=== PATIENT | female | born 1995 | race Caucasian/White ===

== ENCOUNTER → 2017-02-15 | Outpatient (CLI) | payer OTHER ==
[2017-02-15 17:09] LABS: BASO % 0.4 % (0.0-1.0); EOS # 0.2 10^3/uL (0.0-0.50); EOS % 1.8 % (0.0-3.0); IMMATURE GRANULOCYTE % 0.4 % (0-0); LYMPH # 1.9 10^3/uL (1.5-6.5); LYMPH % 18.8 % (24.0-44.0); MEAN CORPUSCULAR HEMOGLOBIN 30.4 pg (27.0-33.0); MEAN CORPUSCULAR HGB CONC 34.7 g/dl (32.0-36.5); MEAN CORPUSCULAR VOLUME 87.6 fl (80.0-96.0); MONO # 0.6 10^3/uL (0.0-0.8); MONO % 6.2 % (0.0-5.0); NEUTROPHILS # 7.3 10^3/uL (1.8-7.7); NEUTROPHILS % 72.4 % (36.0-66.0); PLATELET COUNT, AUTOMATED 214 10^3/uL (150-450); RED CELL DISTRIBUTION WIDTH 12.9 % (11.5-14.5); WHITE BLOOD COUNT 10.1 10^3/uL (4.0-10.0)
[2017-02-16 10:19] LABS: HBsAg Prenatal NEGATIVE (NEGATIVE)
== END ==
LOC: M SMT 14:37
PROVIDERS: ATTEND Specialist
DX: Z36.89 Encounter for other specified antenatal screening (principal); Z3A.08 8 weeks gestation of pregnancy

== ENCOUNTER → 2017-05-06 | Outpatient (CLI) | payer OTHER | LOC: M RAD 09:36 | DX: Z36.9 Encounter for antenatal screening, unspecified (principal); Z3A.19 19 weeks gestation of pregnancy | CPT/HCPCS: 76811 ==

== ENCOUNTER → 2017-06-03 | Outpatient (CLI) | payer OTHER | LOC: M RAD 10:42 | DX: Z34.82 Encounter for supervision of other normal pregnancy, second trimester (principal); Z36.89 Encounter for other specified antenatal screening; Z3A.23 23 weeks gestation of pregnancy | CPT/HCPCS: 76817 ==

== ENCOUNTER → 2017-07-01 | Outpatient (CLI) | payer OTHER ==
[2017-07-01 17:19] LABS: GLUCOSE CHALLENGE TEST 1 HOUR 108 MG/DL (LESS THAN 140)
[2017-07-01 17:35] LABS: HEMATOCRIT 33.4 % (36.0-47.0); HEMOGLOBIN 11.2 g/dl (12.0-15.5); MEAN CORPUSCULAR HEMOGLOBIN 30.5 pg (27.0-33.0); MEAN CORPUSCULAR HGB CONC 33.5 g/dl (32.0-36.5); PLATELET COUNT, AUTOMATED 198 10^3/uL (150-450); RED BLOOD COUNT 3.67 10^6/uL (4.00-5.40); WHITE BLOOD COUNT 11.2 10^3/uL (4.0-10.0)
== END ==
LOC: M WUC 12:46
DX: Z34.83 Encounter for supervision of other normal pregnancy, third trimester (principal); Z3A.00 Weeks of gestation of pregnancy not specified
CPT/HCPCS: 82950

== ENCOUNTER → 2017-09-08 | Outpatient (REF) | payer OTHER | LOC: M LAB REF 16:57 | DX: Z34.83 Encounter for supervision of other normal pregnancy, third trimester (principal); Z3A.00 Weeks of gestation of pregnancy not specified | CPT/HCPCS: 87081 ==

== ENCOUNTER 2017-10-16 13:23 | Emergency (ER) | payer OTHER | END 2017-10-16 15:09 | disposition home or self-care (01) | LOC: M ED 13:23 | DX: O90.0 Disruption of cesarean delivery wound (principal); Z87.891 Personal history of nicotine dependence | CPT/HCPCS: 99283 ==

== ENCOUNTER → 2018-04-04 | Outpatient (REF) | payer OTHER ==
[~2018-04-04] MED LIST: IBUP-1114 PO; PERCOCET PO
[2018-04-04 16:42] LABS: INFLUENZA A AMPLIFICATION POSITIVE (NEGATIVE); INFLUENZA B AMPLIFICATION NEGATIVE (NEGATIVE)
== END ==
LOC: M LAB REF 16:07
PROVIDERS: ATTEND Physician Assistant Medical
DX: J11.1 Influenza due to unidentified influenza virus with other respiratory manifestations (principal)

== ENCOUNTER → 2019-11-21 | Outpatient (CLI) | payer OTHER ==
[2019-11-21 16:35] LABS: HEMATOCRIT 40.2 % (36.0-47.0); HEMOGLOBIN 13.7 g/dl (12.0-15.5); MEAN CORPUSCULAR HEMOGLOBIN 30.5 pg (27.0-33.0); MEAN CORPUSCULAR HGB CONC 34.1 g/dl (32.0-36.5); MEAN CORPUSCULAR VOLUME 89.5 fl (80.0-96.0); PLATELET COUNT, AUTOMATED 197 10^3/uL (150-450); RED BLOOD COUNT 4.49 10^6/uL (4.00-5.40); WHITE BLOOD COUNT 8.4 10^3/uL (4.0-10.0)
[2019-11-21 17:11] LABS: FREE T4 1.07 NG/DL (0.76-1.46); THYROID STIMULATING HORMONE 1.62 uIU/ML (0.358-3.740)
== END ==
LOC: M WUC 14:44
PROVIDERS: ATTEND Student in an Organized Health Care Education/Training Program
DX: F33.1 Major depressive disorder, recurrent, moderate (principal); L64.9 Androgenic alopecia, unspecified; R63.4 Abnormal weight loss

== ENCOUNTER 2020-03-17 11:57 | Emergency (ER) | payer BC, OTHER ==
[~2020-03-17] VITALS: Ht 162.6 cm; Wt 77.2 kg
[2020-03-17] MEDS ORDERED: SERT-138 (12:09)
[2020-03-17] MEDS ORDERED: ACETAMINOPHEN 500 MG TAB PO ONE (14:00)
[2020-03-17 15:05] LABS: BASO % 0.2 % (0.0-1.0); EOS # 0.3 10^3/uL (0.0-0.5); HEMATOCRIT 45.3 % (36.0-47.0); HEMOGLOBIN 15.3 g/dl (12.0-15.5); LYMPH % 23.7 % (24.0-44.0); MEAN CORPUSCULAR HEMOGLOBIN 29.9 pg (27.0-33.0); MEAN CORPUSCULAR HGB CONC 33.8 g/dl (32.0-36.5); MEAN CORPUSCULAR VOLUME 88.6 fl (80.0-96.0); MONO # 0.4 10^3/uL (0.0-0.8); MONO % 4.4 % (0.0-5.0); NEUTROPHILS # 5.8 10^3/uL (1.5-8.5); NEUTROPHILS % 68.5 % (36.0-66.0); PLATELET COUNT, AUTOMATED 216 10^3/uL (150-450); RED BLOOD COUNT 5.11 10^6/uL (4.00-5.40); WHITE BLOOD COUNT 8.5 10^3/uL (4.0-10.0)
[2020-03-17 15:23] LABS: D-DIMER QUANT < 270.0 ng/ml (<500)
[2020-03-17] MEDS ORDERED: NS 1,000 ML IV ONE (15:30)
[2020-03-17 15:42] LABS: ALBUMIN 4.1 GM/DL (3.2-5.2); ALT/SGPT 16 U/L (12-78); BILIRUBIN,DIRECT 0.1 MG/DL (0.0-0.2); BILIRUBIN,TOTAL 0.3 MG/DL (0.2-1.0); BLOOD UREA NITROGEN 12 MG/DL (7-18); CALCIUM LEVEL 9.4 MG/DL (8.5-10.1); CARBON DIOXIDE LEVEL 29 MEQ/L (21-32); CHLORIDE LEVEL 106 MEQ/L (98-107); CK-MB VALUE MASS < 1.0 NG/ML (<3.6); CPK CREATINE PHOSPHOKINASE 85 U/L (26-192); CREATININE FOR GFR 0.81 MG/DL (0.55-1.30); FREE T4 1.06 NG/DL (0.76-1.46); GLOMERULAR FILTRATION RATE > 60.0 (>60); GLUCOSE, FASTING 83 MG/DL (70-100); LIPASE 89 U/L (73-393); MB/CK RELATIVE INDEX 1.18 (< OR =4); POTASSIUM SERUM 3.8 MEQ/L (3.5-5.1); SODIUM LEVEL 139 MEQ/L (136-145); TOTAL PROTEIN 7.3 GM/DL (6.4-8.2); TROPONIN I < 0.02 NG/ML (< 0.10)
[2020-03-17 15:58] LABS: FIBRINOGEN 331 MG/DL (221-452)
--- NOTE | 2020-03-17 16:07 | REP ---
INDICATION: sob. COMPARISON: No comparison study. TECHNIQUE: Portable upright AP chest radiograph. FINDINGS: The lungs are well inflated and free of infiltrate. Pleural angles are sharp. Heart size is normal. Pulmonary vasculature is not increased. EKG monitoring electrodes overlie the chest. IMPRESSION: No active disease. <Electronically signed by Magno Johnston > 03/17/20 0011
[2020-03-17 16:12] LABS: FERRITIN 58 NG/ML (8-252); LDH LACTATE DEHYDROGENASE 177 U/L (84-246)
[2020-03-17 16:41] VITALS: O2SAT 98
[2020-03-17 17:56] VITALS: BP 125/70
--- NOTE | 2020-03-19 14:24 | ECGEPIP ---
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
== END 2020-03-17 18:00 | disposition home or self-care (01) ==
LOC: M ED 11:57
DX: Z11.52 Encounter for screening for COVID-19 (principal); B34.9 Viral infection, unspecified; R09.02 Hypoxemia; R51.9 Headache, unspecified; M79.10 Myalgia, unspecified site; R06.00 Dyspnea, unspecified; R68.83 Chills (without fever); R53.83 Other fatigue; R11.2 Nausea with vomiting, unspecified; R19.7 Diarrhea, unspecified; R00.0 Tachycardia, unspecified; F41.9 Anxiety disorder, unspecified; F32.9 Major depressive disorder, single episode, unspecified; F43.10 Post-traumatic stress disorder, unspecified; F17.200 Nicotine dependence, unspecified, uncomplicated

== ENCOUNTER → 2020-04-15 | Outpatient (CLI) | payer BC ==
[~2020-04-15] MED LIST changes: +SERT-138
--- NOTE | 2020-04-15 17:11 | REP ---
INDICATION: UPPER BACK PAIN. COMPARISON: 03/25/2003. TECHNIQUE: AP and lateral. FINDINGS: There is no fracture or dislocation. Vertebral bodies normal in height and well aligned with normal cervical lordosis. There is no prevertebral soft tissue swelling. Disc spaces are well preserved. IMPRESSION: No abnormalities detected. <Electronically signed by Noel Solares > 04/15/20 [id number]
--- NOTE | 2020-04-15 17:12 | REP ---
INDICATION: UPPER BACK PAIN. COMPARISON: 09/27/2013. TECHNIQUE: Three AP and lateral views obtained. FINDINGS: There is no compression fracture or malalignment. There is normal thoracic kyphosis. Disc spaces are well preserved. The posterior elements are intact. IMPRESSION: Negative thoracic spine series. <Electronically signed by Noel Solares > 04/15/20 [id number]
== END ==
LOC: M WUC 14:07
PROVIDERS: ATTEND Student in an Organized Health Care Education/Training Program
DX: M54.9 Dorsalgia, unspecified (principal)

== ENCOUNTER → 2021-04-07 | Outpatient (CLI) | payer BC | LOC: M WUC 15:32 | PROVIDERS: ATTEND Physician Assistant | DX: S93.411A Sprain of calcaneofibular ligament of right ankle, initial encounter (principal); S93.691A Other sprain of right foot, initial encounter; X58.XXXA Exposure to other specified factors, initial encounter; Y92.9 Unspecified place or not applicable; Y93.9 Activity, unspecified; Y99.9 Unspecified external cause status ==

== ENCOUNTER → 2022-01-20 | Outpatient (CLI) | payer BC ==
[2022-01-20 12:44] LABS: BASO % 0.1 % (0.0-1.0); EOS # 0.5 10^3/uL (0.0-0.5); EOS % 6.1 % (0.0-3.0); HEMATOCRIT 42.3 % (36.0-47.0); HEMOGLOBIN 14.2 g/dl (12.0-15.5); LYMPH # 1.8 10^3/uL (1.5-5.0); LYMPH % 24.5 % (24.0-44.0); MEAN CORPUSCULAR HEMOGLOBIN 30.8 pg (27.0-33.0); MEAN CORPUSCULAR HGB CONC 33.6 g/dl (32.0-36.5); MEAN CORPUSCULAR VOLUME 91.8 fl (80.0-96.0); MONO # 0.5 10^3/uL (0.0-0.8); MONO % 6.1 % (2.0-8.0); NEUTROPHILS # 4.7 10^3/uL (1.5-8.5); NEUTROPHILS % 62.8 % (36.0-66.0); PLATELET COUNT, AUTOMATED 228 10^3/uL (150-450); RED BLOOD COUNT 4.61 10^6/uL (4.00-5.40); WHITE BLOOD COUNT 7.5 10^3/uL (4.0-10.0)
[2022-01-20 13:51] LABS: ALBUMIN 3.8 G/DL (3.2-5.2); ALKALINE PHOSPHATASE 79 U/L (46-116); ALT/SGPT 18 U/L (7.0-40); AST/SGOT 23 U/L (<34); BILIRUBIN,TOTAL 0.3 MG/DL (0.3-1.2); BLOOD UREA NITROGEN 9 MG/DL (9-23); CALCIUM LEVEL 8.7 MG/DL (8.5-10.1); CARBON DIOXIDE LEVEL 30 MMOL/L (20-31); CHLORIDE LEVEL 104 MMOL/L (98-107); CREATININE FOR GFR 0.83 MG/DL (0.55-1.30); FREE T4 0.95 NG/DL (0.89-1.76); GLOMERULAR FILTRATION RATE > 60.0 (>60); GLUCOSE, FASTING 100 MG/DL (60-100); POTASSIUM SERUM 3.7 MMOL/L (3.5-5.1); SODIUM LEVEL 142 MMOL/L (136-145); THYROID STIMULATING HORMONE 2.186 uIU/ML (0.55-4.78); TOTAL PROTEIN 6.9 G/DL (5.7-8.2)
== END ==
LOC: M WUC 09:27
PROVIDERS: ATTEND Student in an Organized Health Care Education/Training Program
DX: R53.83 Other fatigue (principal); M79.671 Pain in right foot; M79.89 Other specified soft tissue disorders; S92.531A Displaced fracture of distal phalanx of right lesser toe(s), initial encounter for closed fracture; X58.XXXA Exposure to other specified factors, initial encounter; Y92.9 Unspecified place or not applicable; Y99.9 Unspecified external cause status; Y93.9 Activity, unspecified

== ENCOUNTER → 2022-05-05 | Outpatient (REF) | payer BC | LOC: M SFHCWAGY 17:55 | PROVIDERS: ATTEND Nurse Practitioner Family | DX: Z12.4 Encounter for screening for malignant neoplasm of cervix (principal); R87.615 Unsatisfactory cytologic smear of cervix ==

== ENCOUNTER 2022-05-17 15:31 | Emergency (ER) | payer BC ==
[~2022-05-17] VITALS: Ht 162.6 cm; Wt 88.6 kg
[2022-05-17] MEDS ORDERED: MIRT-62 PO (15:51)
[2022-05-17] MEDS ORDERED: KLON0.5T PO (15:51)
[2022-05-17] MEDS ORDERED: WELLTAB40 PO (15:51)
[2022-05-17] MEDS ORDERED: PAXI20TA30 PO (15:51)
[2022-05-17] MEDS ORDERED: WELLTAB38 PO (15:51)
[2022-05-17 16:50] LABS: HEMATOCRIT 42.7 % (36.0-47.0); HEMOGLOBIN 14.2 g/dl (12.0-15.5); MEAN CORPUSCULAR HEMOGLOBIN 30.3 pg (27.0-33.0); MEAN CORPUSCULAR HGB CONC 33.3 g/dl (32.0-36.5); MEAN CORPUSCULAR VOLUME 91.2 fl (80.0-96.0); PLATELET COUNT, AUTOMATED 230 10^3/uL (150-450); RED BLOOD COUNT 4.68 10^6/uL (4.00-5.40); WHITE BLOOD COUNT 9.4 10^3/uL (4.0-10.0)
[2022-05-17 16:57] LABS: BARBITURATES URINE NEGATIVE (NEGATIVE); BENZODIAZEPINES URINE NEGATIVE (NEGATIVE); COCAINE METABOLITE URINE NEGATIVE (NEGATIVE); METHADONE URINE NEGATIVE (NEGATIVE); OPIATES URINE NEGATIVE (NEGATIVE); PHENCYCLIDINE URINE NEGATIVE (NEGATIVE)
[2022-05-17 16:59] LABS: AMPHETAMINES LEVEL URINE POSITIVE (NEGATIVE); CANNABINOIDS URINE POSITIVE (NEGATIVE)
[2022-05-17 17:04] LABS: ETHYL ALCOHOL (ETHANOL) < 0.003 % (0.000-0.010)
[2022-05-17 17:06] LABS: SALICYLATE LEVEL < 3.0 MG/DL (<30)
[2022-05-17 17:07] LABS: ACETAMINOPHEN LEVEL < 2.0 UG/ML (10.0-20.0); ALBUMIN 3.9 G/DL (3.2-5.2); ALKALINE PHOSPHATASE 92 U/L (46-116); ALT/SGPT 29 U/L (7.0-40); AST/SGOT 30 U/L (<34); BILIRUBIN,DIRECT 0.1 MG/DL (<0.4); BILIRUBIN,TOTAL 0.4 MG/DL (0.3-1.2); BLOOD UREA NITROGEN 14 MG/DL (9-23); CALCIUM LEVEL 8.9 MG/DL (8.5-10.1); CARBON DIOXIDE LEVEL 25 MMOL/L (20-31); CHLORIDE LEVEL 107 MMOL/L (98-107); CREATININE FOR GFR 0.72 MG/DL (0.55-1.30); GLOMERULAR FILTRATION RATE > 60.0 (>60); GLUCOSE, FASTING 103 MG/DL (60-100); POTASSIUM SERUM 4.1 MMOL/L (3.5-5.1); SODIUM LEVEL 139 MMOL/L (136-145)
[2022-05-17 17:25] LABS: HCG, SERUM QUALITATIVE NEGATIVE (NEGATIVE)
[2022-05-17] MEDS ORDERED: CALTAB PO (17:26)
[2022-05-17] MEDS ORDERED: HOME MED LIST COMPLETE! XX SCH (17:30)
[2022-05-17 17:33] LABS: THYROID STIMULATING HORMONE 0.618 uIU/ML (0.55-4.78)
[2022-05-17] MEDS ORDERED: MIRTAZAPINE 15 MG TAB PO SCH (23:25)
[2022-05-18 09:28] VITALS: BP 132/58
[2022-05-18] MEDS ORDERED: PARoxetine 20MG TABLET PO ONE (09:30)
[2022-05-18] MEDS ORDERED: clonazePAM 0.5 MG TAB PO ONE (09:30)
[2022-05-19] MEDS ORDERED: buPROPion **XL** TABLET 150MG (WELLBUTRIN XL) PO SCH (09:00)
== END 2022-05-18 09:43 ==
LOC: M ED 15:31
DX: R45.851 Suicidal ideations (principal); F32.9 Major depressive disorder, single episode, unspecified; F43.10 Post-traumatic stress disorder, unspecified

== ENCOUNTER 2022-05-29 11:24 | Emergency (ER) | payer BC ==
[~2022-05-29] VITALS: Ht 162.6 cm; Wt 90.2 kg
[~2022-05-29 11:24] MED LIST changes: +CALTAB PO; +KLON0.5T PO; +MIRT-62 PO; +PAXI20TA30 PO; +WELLTAB38 PO; +WELLTAB40 PO
[2022-05-29] MEDS ORDERED: methylPREDNISolone 125MG 2ML VIAL IV ONE (12:30)
[2022-05-29] MEDS ORDERED: FAMOTIDINE 20MG/2ML VIAL IVP ONE (12:30)
[2022-05-29 13:04] LABS: BASO % 0.4 % (0.0-1.0); EOS # 0.5 10^3/uL (0.0-0.5); EOS % 6.5 % (0.0-3.0); HEMATOCRIT 41.3 % (36.0-47.0); HEMOGLOBIN 13.9 g/dl (12.0-15.5); LYMPH # 1.6 10^3/uL (1.5-5.0); LYMPH % 19.7 % (24.0-44.0); MEAN CORPUSCULAR HEMOGLOBIN 30.7 pg (27.0-33.0); MEAN CORPUSCULAR HGB CONC 33.7 g/dl (32.0-36.5); MEAN CORPUSCULAR VOLUME 91.2 fl (80.0-96.0); MONO # 0.7 10^3/uL (0.0-0.8); MONO % 8.3 % (2.0-8.0); NEUTROPHILS # 5.2 10^3/uL (1.5-8.5); NEUTROPHILS % 64.9 % (36.0-66.0); PLATELET COUNT, AUTOMATED 203 10^3/uL (150-450); RED BLOOD COUNT 4.53 10^6/uL (4.00-5.40)
[2022-05-29 13:16] LABS: ERYTHROCYTE SEDIMENTATION RATE 32 mm/hr (0-20)
[2022-05-29 13:22] LABS: ALBUMIN 3.8 G/DL (3.2-5.2); ALKALINE PHOSPHATASE 91 U/L (46-116); ALT/SGPT 21 U/L (7.0-40); AST/SGOT 21 U/L (<34); BILIRUBIN,DIRECT 0.2 MG/DL (<0.4); BILIRUBIN,TOTAL 0.4 MG/DL (0.3-1.2); BLOOD UREA NITROGEN 11 MG/DL (9-23); CALCIUM LEVEL 8.9 MG/DL (8.5-10.1); CARBON DIOXIDE LEVEL 29 MMOL/L (20-31); CHLORIDE LEVEL 106 MMOL/L (98-107); CREATININE FOR GFR 0.82 MG/DL (0.55-1.30); GLOMERULAR FILTRATION RATE > 60.0 (>60); GLUCOSE, FASTING 104 MG/DL (60-100); POTASSIUM SERUM 3.7 MMOL/L (3.5-5.1); SODIUM LEVEL 141 MMOL/L (136-145)
[2022-05-29] MEDS ORDERED: diphenhydrAMINE 50MG/ML VIAL IV ONE (13:30)
[2022-05-29] MEDS ORDERED: OXCA300T14 PO (14:27)
[2022-05-29] MEDS ORDERED: HOME MED LIST COMPLETE! XX SCH (14:30)
[2022-05-29] MEDS ORDERED: PRED20TA PO (14:54)
[2022-05-29] MEDS ORDERED: CETI-24 PO (14:54)
[2022-05-29 15:05] VITALS: BP 133/83
== END 2022-05-29 15:07 | disposition home or self-care (01) ==
LOC: M ED 11:24
DX: L30.9 Dermatitis, unspecified (principal); F41.9 Anxiety disorder, unspecified; F32.9 Major depressive disorder, single episode, unspecified; F90.9 Attention-deficit hyperactivity disorder, unspecified type; F17.290 Nicotine dependence, other tobacco product, uncomplicated; Z79.899 Other long term (current) drug therapy
CPT/HCPCS: 80048; 80076; 85025; 85652; 86140; 87486; 87581; 87633; 87798; 87880; 96374; 96375; 99284; J1200; J2930; S0028

== ENCOUNTER → 2022-06-22 | Outpatient (CLI) | payer BC ==
[~2022-06-22] MED LIST changes: +CETI-24 PO; +OXCA300T14 PO; +PRED20TA PO
== END ==
LOC: M WUC 13:06
PROVIDERS: ATTEND Psychiatry & Neurology Psychiatry
DX: F33.1 Major depressive disorder, recurrent, moderate (principal); F43.10 Post-traumatic stress disorder, unspecified; Z53.9 Procedure and treatment not carried out, unspecified reason

== ENCOUNTER → 2022-06-23 | Outpatient (CLI) | payer BC ==
[2022-06-23 13:33] LABS: VALPROIC ACID (DEPAKOTE) 21.1 UG/ML (50.0-100.0)
[2022-06-23 13:34] LABS: ALBUMIN 3.7 G/DL (3.2-5.2); ALKALINE PHOSPHATASE 64 U/L (46-116); ALT/SGPT < 9 U/L (7.0-40); AST/SGOT 14 U/L (<34); BILIRUBIN,DIRECT 0.1 MG/DL (<0.4); BILIRUBIN,TOTAL 0.3 MG/DL (0.3-1.2); BLOOD UREA NITROGEN 12 MG/DL (9-23); CALCIUM LEVEL 8.7 MG/DL (8.5-10.1); CARBON DIOXIDE LEVEL 27 MMOL/L (20-31); CHLORIDE LEVEL 108 MMOL/L (98-107); CHOLESTEROL LEVEL 143 MG/DL (<200); CHOLESTEROL RISK RATIO 2.18 (<5); CREATININE FOR GFR 0.81 MG/DL (0.55-1.30); GLOMERULAR FILTRATION RATE > 60.0 (>60); GLUCOSE, FASTING 83 MG/DL (60-100); HDL CHOLESTEROL 65.5 MG/DL (>40); LDL CHOLESTEROL 62.9 MG/DL (<100); NON-HDL-C 77.5 MG/DL; POTASSIUM SERUM 4.3 MMOL/L (3.5-5.1); SODIUM LEVEL 141 MMOL/L (136-145); TOTAL PROTEIN 6.5 G/DL (5.7-8.2); TRIGLYCERIDES LEVEL 73 MG/DL (<150)
== END ==
LOC: M WUC 09:58
PROVIDERS: ATTEND Psychiatry & Neurology Psychiatry
DX: F33.1 Major depressive disorder, recurrent, moderate (principal); F43.10 Post-traumatic stress disorder, unspecified

== ENCOUNTER → 2022-06-24 | Outpatient (CLI) | payer BC ==
[2022-06-24 12:53] LABS: BASO # 0.1 10^3/uL (0.0-0.2); BASO % 0.6 % (0.0-1.0); EOS # 0.8 10^3/uL (0.0-0.5); EOS % 9.9 % (0.0-3.0); HEMATOCRIT 42.2 % (36.0-47.0); HEMOGLOBIN 13.5 g/dl (12.0-15.5); LYMPH # 2.3 10^3/uL (1.5-5.0); LYMPH % 27.7 % (24.0-44.0); MEAN CORPUSCULAR HEMOGLOBIN 30.6 pg (27.0-33.0); MEAN CORPUSCULAR VOLUME 95.7 fl (80.0-96.0); MONO # 0.5 10^3/uL (0.0-0.8); MONO % 6.5 % (2.0-8.0); NEUTROPHILS # 4.5 10^3/uL (1.5-8.5); NEUTROPHILS % 54.9 % (36.0-66.0); PLATELET COUNT, AUTOMATED 199 10^3/uL (150-450); RED BLOOD COUNT 4.41 10^6/uL (4.00-5.40); WHITE BLOOD COUNT 8.3 10^3/uL (4.0-10.0)
[2022-06-24 13:32] LABS: HEMOGLOBIN A1c 4.7 % (4.0-6.0)
== END ==
LOC: M WUC 09:22
PROVIDERS: ATTEND Psychiatry & Neurology Psychiatry
DX: F33.1 Major depressive disorder, recurrent, moderate (principal); F43.10 Post-traumatic stress disorder, unspecified

== ENCOUNTER → 2022-07-21 | Outpatient (CLI) | payer BC ==
[2022-07-21 16:50] LABS: HEMATOCRIT 32.6 % (36.0-47.0); HEMOGLOBIN 10.9 g/dl (12.0-15.5); MEAN CORPUSCULAR HEMOGLOBIN 30.9 pg (27.0-33.0); MEAN CORPUSCULAR HGB CONC 33.4 g/dl (32.0-36.5); MEAN CORPUSCULAR VOLUME 92.4 fl (80.0-96.0); PLATELET COUNT, AUTOMATED 149 10^3/uL (150-450); RED BLOOD COUNT 3.53 10^6/uL (4.00-5.40)
[2022-07-21 17:11] LABS: VALPROIC ACID (DEPAKOTE) 66.7 UG/ML (50.0-100.0)
[2022-07-21 17:13] LABS: ALBUMIN 3.4 G/DL (3.2-5.2); ALKALINE PHOSPHATASE 64 U/L (46-116); ALT/SGPT 54 U/L (7.0-40); AST/SGOT 74 U/L (<34); BILIRUBIN,TOTAL 0.7 MG/DL (0.3-1.2); BLOOD UREA NITROGEN 11 MG/DL (9-23); CALCIUM LEVEL 8.7 MG/DL (8.5-10.1); CARBON DIOXIDE LEVEL 28 MMOL/L (20-31); CHLORIDE LEVEL 106 MMOL/L (98-107); CREATININE FOR GFR 0.89 MG/DL (0.55-1.30); GLOMERULAR FILTRATION RATE > 60.0 (>60); GLUCOSE, FASTING 104 MG/DL (60-100); POTASSIUM SERUM 3.9 MMOL/L (3.5-5.1); SODIUM LEVEL 141 MMOL/L (136-145); TOTAL PROTEIN 6.4 G/DL (5.7-8.2)
[2022-07-21 19:19] LABS: ATYPICAL LYMPH 8 % (0-5); EOSINOPHILS 2 % (0-3); LYMPHOCYTES 60 % (16-44); MONOCYTES 4 % (0-5); NEUTROPHILS 25 % (28-66)
[2022-07-21 19:20] LABS: PLATELET ESTIMATE NORMAL (NORMAL)
== END ==
LOC: M WUC 14:02
PROVIDERS: ATTEND Student in an Organized Health Care Education/Training Program
DX: F33.1 Major depressive disorder, recurrent, moderate (principal)

== ENCOUNTER → 2022-08-31 | Outpatient (CLI) | payer BC ==
[2022-08-31 13:39] LABS: BASO % 0.4 % (0.0-1.0); EOS # 0.2 10^3/uL (0.0-0.5); EOS % 3.1 % (0.0-3.0); HEMATOCRIT 36.5 % (36.0-47.0); HEMOGLOBIN 12.4 g/dl (12.0-15.5); LYMPH # 2.3 10^3/uL (1.5-5.0); LYMPH % 47.8 % (24.0-44.0); MEAN CORPUSCULAR HEMOGLOBIN 31.7 pg (27.0-33.0); MEAN CORPUSCULAR VOLUME 93.4 fl (80.0-96.0); MONO # 0.5 10^3/uL (0.0-0.8); NEUTROPHILS # 1.9 10^3/uL (1.5-8.5); NEUTROPHILS % 38.5 % (36.0-66.0); PLATELET COUNT, AUTOMATED 168 10^3/uL (150-450); RED BLOOD COUNT 3.91 10^6/uL (4.00-5.40); WHITE BLOOD COUNT 4.8 10^3/uL (4.0-10.0)
[2022-08-31 14:07] LABS: ALBUMIN 3.7 G/DL (3.2-5.2); ALKALINE PHOSPHATASE 60 U/L (46-116); ALT/SGPT 14 U/L (7.0-40); AST/SGOT < 8 U/L (<34); BILIRUBIN,TOTAL 0.4 MG/DL (0.3-1.2); BLOOD UREA NITROGEN 14 MG/DL (9-23); CALCIUM LEVEL 8.8 MG/DL (8.5-10.1); CARBON DIOXIDE LEVEL 28 MMOL/L (20-31); CHLORIDE LEVEL 108 MMOL/L (98-107); CREATININE FOR GFR 0.86 MG/DL (0.55-1.30); GLOMERULAR FILTRATION RATE > 60.0 (>60); GLUCOSE, FASTING 85 MG/DL (60-100); POTASSIUM SERUM 3.9 MMOL/L (3.5-5.1); SODIUM LEVEL 141 MMOL/L (136-145); TOTAL PROTEIN 6.5 G/DL (5.7-8.2)
== END ==
LOC: M WUC 09:02
PROVIDERS: ATTEND Student in an Organized Health Care Education/Training Program
DX: R10.12 Left upper quadrant pain (principal)

== ENCOUNTER → 2022-09-08 | Outpatient (CLI) | payer BC | LOC: M RAD 14:08 | PROVIDERS: ATTEND Student in an Organized Health Care Education/Training Program | DX: R22.1 Localized swelling, mass and lump, neck (principal) ==

== ENCOUNTER → 2022-09-14 | Outpatient (CLI) | payer BC ==
[~2022-09-14] MED LIST changes: +GASTROGRAFIN SOLUTION 30ML ONE; +ISOVUE-370 76% 100ML VIAL ONE
== END ==
LOC: M PLAIMG 11:41
PROVIDERS: ATTEND Student in an Organized Health Care Education/Training Program
DX: R10.12 Left upper quadrant pain (principal); R16.1 Splenomegaly, not elsewhere classified
CPT/HCPCS: 74177; Q9963; Q9967

== ENCOUNTER 2022-10-19 17:56 | Emergency (ER) | payer BC ==
[~2022-10-19] VITALS: Ht 162.6 cm; Wt 87.6 kg
[~2022-10-19 17:56] MED LIST changes: +ABIL1TAB11 PO; -GASTROGRAFIN SOLUTION 30ML ONE; -ISOVUE-370 76% 100ML VIAL ONE; +NOXI1TAB PO
[2022-10-19 17:57] VITALS: BP 129/73; TEMP 100.6; O2SAT 97
== END 2022-10-19 18:58 | disposition left against medical advice (07) ==
LOC: M ED 17:56
DX: Z53.21 Procedure and treatment not carried out due to patient leaving prior to being seen by health care provider (principal)

== ENCOUNTER 2022-10-21 08:05 | Emergency (ER) | payer BC ==
[~2022-10-21] VITALS: Ht 162.6 cm; Wt 86.4 kg
[2022-10-21] MEDS ORDERED: BUPR150T12 PO (08:14)
[2022-10-21] MEDS ORDERED: MIRT-10 PO (08:14)
[2022-10-21] MEDS ORDERED: CLON0.5T2 PO (08:14)
[2022-10-21] MEDS ORDERED: ARIP1TAB4 (08:14)
[2022-10-21] MEDS ORDERED: MORPHINE 4 MG/ML 1ML VIAL IV ONE ×2 (08:45→14:40)
[2022-10-21] MEDS ORDERED: ONDANSETRON 4MG 2ML VIAL IV ONE ×2 (08:45→14:40)
[2022-10-21] MEDS ORDERED: hydrOXYzine 50 MG TAB PO STA ×3 (09:50→20:29)
[2022-10-21 10:06] LABS: INR 1.36; PROTHROMBIN TIME 16.4 SECONDS (12.5-14.5)
[2022-10-21 10:07] LABS: PARTIAL THROMBOPLASTIN TIME 27.9 SECONDS (24.8-34.2)
[2022-10-21 10:11] LABS: HCG, SERUM QUALITATIVE NEGATIVE (NEGATIVE)
[2022-10-21 10:14] LABS: ALBUMIN 3.9 G/DL (3.2-5.2); ALKALINE PHOSPHATASE 315 U/L (46-116); ALT/SGPT 166 U/L (7.0-40); AST/SGOT 101 U/L (<34); BILIRUBIN,DIRECT 4.1 MG/DL (<0.4); BILIRUBIN,TOTAL 5.7 MG/DL (0.3-1.2); BLOOD UREA NITROGEN 9 MG/DL (9-23); CALCIUM LEVEL 9.1 MG/DL (8.5-10.1); CARBON DIOXIDE LEVEL 27 MMOL/L (20-31); CHLORIDE LEVEL 105 MMOL/L (98-107); GLOMERULAR FILTRATION RATE > 60.0 (>60); GLUCOSE, FASTING 110 MG/DL (60-100); LIPASE 67 U/L (12-53); POTASSIUM SERUM 5.7 MMOL/L (3.5-5.1); SODIUM LEVEL 137 MMOL/L (136-145); TOTAL PROTEIN 7.7 G/DL (5.7-8.2)
[2022-10-21 10:14] LABS: BASO % 0.2 % (0.0-1.0); EOS # 0.3 10^3/uL (0.0-0.5); EOS % 2.7 % (0.0-3.0); HEMATOCRIT 38.1 % (36.0-47.0); HEMOGLOBIN 13.4 g/dl (12.0-15.5); LYMPH # 1.1 10^3/uL (1.5-5.0); LYMPH % 9.5 % (24.0-44.0); MEAN CORPUSCULAR HEMOGLOBIN 31.5 pg (27.0-33.0); MEAN CORPUSCULAR HGB CONC 35.2 g/dl (32.0-36.5); MEAN CORPUSCULAR VOLUME 89.4 fl (80.0-96.0); MONO # 0.7 10^3/uL (0.0-0.8); MONO % 5.8 % (2.0-8.0); NEUTROPHILS # 9.5 10^3/uL (1.5-8.5); NEUTROPHILS % 81.5 % (36.0-66.0); PLATELET COUNT, AUTOMATED 202 10^3/uL (150-450); RED BLOOD COUNT 4.26 10^6/uL (4.00-5.40); WHITE BLOOD COUNT 11.6 10^3/uL (4.0-10.0)
[2022-10-21] MEDS ORDERED: ISOVUE-370 76% 100ML VIAL As Ordered ONE (10:45)
[2022-10-21 11:29] LABS: POTASSIUM SERUM 3.6 MMOL/L (3.5-5.1)
[2022-10-21] MEDS ORDERED: NS 1,000 ML IV ONE (15:25)
[2022-10-21 17:01] LABS: ETHYL ALCOHOL (ETHANOL) 0.004 % (0.000-0.010)
[2022-10-21 17:03] LABS: SALICYLATE LEVEL < 3.0 MG/DL (<30)
[2022-10-21 17:09] LABS: AMPHETAMINES LEVEL URINE NEGATIVE (NEGATIVE); BARBITURATES URINE NEGATIVE (NEGATIVE); BENZODIAZEPINES URINE NEGATIVE (NEGATIVE); PHENCYCLIDINE URINE NEGATIVE (NEGATIVE)
[2022-10-21 17:10] LABS: COCAINE METABOLITE URINE NEGATIVE (NEGATIVE); METHADONE URINE NEGATIVE (NEGATIVE); OPIATES URINE NEGATIVE (NEGATIVE)
[2022-10-21 17:11] LABS: CPK CREATINE PHOSPHOKINASE 52 U/L (34-145)
[2022-10-21 17:12] LABS: CANNABINOIDS URINE POSITIVE (NEGATIVE)
[2022-10-21 17:13] LABS: ACETAMINOPHEN LEVEL 3.7 UG/ML (10.0-20.0)
[2022-10-21 18:31] LABS: RSV AMPLIFICATION NEGATIVE (NEGATIVE)
[2022-10-21 19:42] LABS: ALBUMIN 3.2 G/DL (3.2-5.2); BILIRUBIN,DIRECT 4.1 MG/DL (<0.4); TOTAL PROTEIN 6.4 G/DL (5.7-8.2)
[2022-10-21] MEDS ORDERED: ONDA4TAB6 PO (20:06)
[2022-10-21] MEDS ORDERED: PERC5TAB12 PO (20:06)
[2022-10-21] MEDS ORDERED: KETO10TAB PO (20:06)
[2022-10-21] MEDS ORDERED: ACETAMINOPHEN 500 MG TAB PO ONE (20:25)
[2022-10-21 20:49] LABS: BASO % 0.2 % (0.0-1.0); EOS # 0.2 10^3/uL (0.0-0.5); EOS % 1.4 % (0.0-3.0); HEMATOCRIT 38.3 % (36.0-47.0); HEMOGLOBIN 13.4 g/dl (12.0-15.5); LYMPH # 1.1 10^3/uL (1.5-5.0); LYMPH % 10.5 % (24.0-44.0); MEAN CORPUSCULAR HEMOGLOBIN 31.2 pg (27.0-33.0); MEAN CORPUSCULAR VOLUME 89.1 fl (80.0-96.0); MONO # 0.7 10^3/uL (0.0-0.8); MONO % 6.4 % (2.0-8.0); NEUTROPHILS # 8.4 10^3/uL (1.5-8.5); PLATELET COUNT, AUTOMATED 221 10^3/uL (150-450); WHITE BLOOD COUNT 10.4 10^3/uL (4.0-10.0)
[2022-10-21] MEDS ORDERED: PIPERACILLIN/TAZOBACTAM SOD 4.5 GM in D5W MINI-BAG PLUS 50 ML IV ONE (22:25)
[2022-10-22 00:35] VITALS: BP 119/58; TEMP 98.2; O2SAT 98
[2022-10-23 13:08] LABS: HEPATITIS C QUANTITATION HCV Not Detected IU/mL (.)
== END 2022-10-22 00:36 | disposition short-term general hospital (02) ==
LOC: M ED 08:05
DX: R17 Unspecified jaundice (principal); R74.01 Elevation of levels of liver transaminase levels; R16.1 Splenomegaly, not elsewhere classified; K63.89 Other specified diseases of intestine; K76.0 Fatty (change of) liver, not elsewhere classified; D64.9 Anemia, unspecified; F32.A Depression, unspecified; F41.9 Anxiety disorder, unspecified; F17.290 Nicotine dependence, other tobacco product, uncomplicated; Z79.899 Other long term (current) drug therapy; Z88.8 Allergy status to other drugs, medicaments and biological substances
CPT/HCPCS: 74177; 74181; 76705; 80047; 80048; 80076; 80143; 80307; 81001; 82077; 82140; 82550; 83605; 83690; 84132; 84703; 85025; 85610; 85730; 87040; 87522; 87631; 93041; 93975; 96361; 96374; 96375; 96376; 99285; J2405; J2543; Q9967

== ENCOUNTER → 2022-11-04 | Outpatient (CLI) | payer BC ==
[~2022-11-04] MED LIST changes: +ARIP1TAB4; +BUPR150T12 PO; +CLON0.5T2 PO; +KETO10TAB PO; +MIRT-10 PO; -MIRT-62 PO; +MIRT-88 PO; +ONDA4TAB6 PO; +PERC5TAB12 PO
[2022-11-04 18:58] LABS: HEMATOCRIT 38.4 % (36.0-47.0); HEMOGLOBIN 12.3 g/dl (12.0-15.5); MEAN CORPUSCULAR HEMOGLOBIN 30.4 pg (27.0-33.0); MEAN CORPUSCULAR VOLUME 94.8 fl (80.0-96.0); PLATELET COUNT, AUTOMATED 539 10^3/uL (150-450); RED BLOOD COUNT 4.05 10^6/uL (4.00-5.40); WHITE BLOOD COUNT 11.8 10^3/uL (4.0-10.0)
[2022-11-04 19:45] LABS: ALBUMIN 2.6 G/DL (3.2-5.2); ALKALINE PHOSPHATASE 1301 U/L (46-116); ALT/SGPT 260 U/L (7.0-40); AST/SGOT 234 U/L (<34); BILIRUBIN,TOTAL 10.6 MG/DL (0.3-1.2); BLOOD UREA NITROGEN 10 MG/DL (9-23); CARBON DIOXIDE LEVEL 28 MMOL/L (20-31); CHLORIDE LEVEL 97 MMOL/L (98-107); CREATININE FOR GFR 0.73 MG/DL (0.55-1.30); GLOMERULAR FILTRATION RATE > 60.0 (>60); GLUCOSE, FASTING 119 MG/DL (60-100); POTASSIUM SERUM 4.1 MMOL/L (3.5-5.1); SODIUM LEVEL 132 MMOL/L (136-145)
[2022-11-04 20:49] LABS: EOSINOPHILS 2 % (0-3); LYMPHOCYTES 34 % (16-44); MONOCYTES 1 % (0-5); NEUTROPHILS 62 % (28-66); PLATELET ESTIMATE INCREASED (NORMAL)
[2022-11-04 20:50] LABS: HYPOCHROMASIA 1+
== END ==
LOC: M WUC 11:46
PROVIDERS: ATTEND Student in an Organized Health Care Education/Training Program
DX: Z90.49 Acquired absence of other specified parts of digestive tract (principal)

== ENCOUNTER 2022-11-05 10:54 | Emergency (ER) | payer BC ==
[~2022-11-05] VITALS: Ht 162.6 cm; Wt 84.0 kg
[2022-11-05] MEDS ORDERED: KETOROLAC 30 MG/ML 1ML VIAL IV ONE (11:40)
[2022-11-05] MEDS ORDERED: NS 1,000 ML IV ONE (11:40)
[2022-11-05] MEDS ORDERED: METOCLOPRAMIDE INJ 10MG/2ML VIAL IV ONE (11:40)
[2022-11-05 12:57] LABS: BASO # 0.1 10^3/uL (0.0-0.2); BASO % 0.6 % (0.0-1.0); EOS # 0.2 10^3/uL (0.0-0.5); EOS % 1.9 % (0.0-3.0); HEMATOCRIT 35.1 % (36.0-47.0); HEMOGLOBIN 11.6 g/dl (12.0-15.5); LYMPH # 2.1 10^3/uL (1.5-5.0); LYMPH % 20.5 % (24.0-44.0); MEAN CORPUSCULAR HEMOGLOBIN 30.1 pg (27.0-33.0); MEAN CORPUSCULAR VOLUME 91.2 fl (80.0-96.0); MONO # 0.6 10^3/uL (0.0-0.8); MONO % 5.7 % (2.0-8.0); NEUTROPHILS % 69.8 % (36.0-66.0); PLATELET COUNT, AUTOMATED 433 10^3/uL (150-450); RED BLOOD COUNT 3.85 10^6/uL (4.00-5.40); WHITE BLOOD COUNT 10.1 10^3/uL (4.0-10.0)
[2022-11-05 13:12] LABS: INR 1.07; PARTIAL THROMBOPLASTIN TIME 26.4 SECONDS (24.8-34.2); PROTHROMBIN TIME 13.6 SECONDS (12.5-14.5)
[2022-11-05 13:18] LABS: LIPASE 86 U/L (12-53)
[2022-11-05 13:19] LABS: AMYLASE 78 U/L (30-118)
[2022-11-05 13:22] LABS: HCG, SERUM QUALITATIVE NEGATIVE (NEGATIVE)
[2022-11-05 14:01] LABS: ALBUMIN 2.5 G/DL (3.2-5.2); ALT/SGPT 264 U/L (7.0-40); AST/SGOT 229 U/L (<34); BILIRUBIN,TOTAL 10.4 MG/DL (0.3-1.2); BLOOD UREA NITROGEN 10 MG/DL (9-23); CALCIUM LEVEL 8.6 MG/DL (8.5-10.1); CARBON DIOXIDE LEVEL 26 MMOL/L (20-31); CHLORIDE LEVEL 100 MMOL/L (98-107); CREATININE FOR GFR 0.67 MG/DL (0.55-1.30); GLOMERULAR FILTRATION RATE > 60.0 (>60); GLUCOSE, FASTING 105 MG/DL (60-100); POTASSIUM SERUM 4.1 MMOL/L (3.5-5.1); SODIUM LEVEL 134 MMOL/L (136-145); TOTAL PROTEIN 6.8 G/DL (5.7-8.2)
[2022-11-05 14:13] LABS: ALKALINE PHOSPHATASE 1268 U/L (46-116)
[2022-11-05] MEDS ORDERED: traMADol 50 MG TAB PO ONE (18:40)
[2022-11-05 18:45] VITALS: BP 125/70; TEMP 97.6; O2SAT 99
== END 2022-11-05 18:57 | disposition short-term general hospital (02) ==
LOC: M ED 10:54
DX: R17 Unspecified jaundice (principal); R74.01 Elevation of levels of liver transaminase levels; F41.9 Anxiety disorder, unspecified; F32.A Depression, unspecified; F43.10 Post-traumatic stress disorder, unspecified; F31.9 Bipolar disorder, unspecified; F12.10 Cannabis abuse, uncomplicated; F10.10 Alcohol abuse, uncomplicated; Z88.8 Allergy status to other drugs, medicaments and biological substances; Z79.811 Long term (current) use of aromatase inhibitors; Z79.899 Other long term (current) drug therapy
CPT/HCPCS: 76705; 80048; 80076; 81000; 81015; 82150; 83605; 83690; 83880; 84703; 85025; 85610; 85730; 87040; 87086; 96361; 96374; 99284; J1885; J2765

== ENCOUNTER → 2022-11-23 | Outpatient (REF) | payer BC ==
[2022-11-23 16:53] LABS: BASO % 0.3 % (0.0-1.0); EOS # 0.1 10^3/uL (0.0-0.5); EOS % 2.4 % (0.0-3.0); HEMATOCRIT 36.3 % (36.0-47.0); HEMOGLOBIN 12.2 g/dl (12.0-15.5); LYMPH # 2.4 10^3/uL (1.5-5.0); LYMPH % 41.8 % (24.0-44.0); MEAN CORPUSCULAR HEMOGLOBIN 31.5 pg (27.0-33.0); MEAN CORPUSCULAR HGB CONC 33.6 g/dl (32.0-36.5); MEAN CORPUSCULAR VOLUME 93.8 fl (80.0-96.0); MONO # 0.5 10^3/uL (0.0-0.8); MONO % 7.8 % (2.0-8.0); NEUTROPHILS # 2.7 10^3/uL (1.5-8.5); NEUTROPHILS % 47.5 % (36.0-66.0); PLATELET COUNT, AUTOMATED 239 10^3/uL (150-450); RED BLOOD COUNT 3.87 10^6/uL (4.00-5.40); WHITE BLOOD COUNT 5.8 10^3/uL (4.0-10.0)
[2022-11-23 17:25] LABS: ALBUMIN 3.7 G/DL (3.2-5.2); ALKALINE PHOSPHATASE 774 U/L (46-116); ALT/SGPT 140 U/L (7.0-40); AST/SGOT 77 U/L (<34); BILIRUBIN,TOTAL 3.3 MG/DL (0.3-1.2); BLOOD UREA NITROGEN 13 MG/DL (9-23); CALCIUM LEVEL 9.4 MG/DL (8.5-10.1); CARBON DIOXIDE LEVEL 25 MMOL/L (20-31); CHLORIDE LEVEL 107 MMOL/L (98-107); CREATININE FOR GFR 0.86 MG/DL (0.55-1.30); GLOMERULAR FILTRATION RATE > 60.0 (>60); GLUCOSE, FASTING 98 MG/DL (60-100); SODIUM LEVEL 140 MMOL/L (136-145); TOTAL PROTEIN 7.3 G/DL (5.7-8.2)
== END ==
LOC: M LABWUC 16:29
PROVIDERS: ATTEND Student in an Organized Health Care Education/Training Program
DX: Z90.49 Acquired absence of other specified parts of digestive tract (principal)

== ENCOUNTER → 2023-04-18 | Outpatient (CLI) | payer BC ==
[~2023-04-18] MED LIST changes: -KLON0.5T PO; +KLON0.5T8 PO
== END ==
LOC: M RAD 16:02
PROVIDERS: ATTEND Nurse Practitioner Family
DX: N93.9 Abnormal uterine and vaginal bleeding, unspecified (principal)

== ENCOUNTER → 2023-06-23 | Outpatient (CLI) | payer BC ==
[2023-06-23 11:44] LABS: URINE PREG TEST NEGATIVE (NEGATIVE)
[2023-06-23 11:47] LABS: APPEARANCE, URINE HAZY (CLEAR); BACTERIA, URINE AUTO NEGATIVE (NEGATIVE); BASO % 0.1 % (0.0-1.0); BILIRUBIN, URINE AUTO NEGATIVE (NEGATIVE); BLOOD, URINE BLOOD NEGATIVE (NEGATIVE); COLOR, URINE YELLOW (YELLOW); EOS # 0.3 10^3/uL (0.0-0.5); EOS % 3.7 % (0.0-3.0); GLUCOSE, URINE (UA) AUTO NEGATIVE (NEGATIVE); HEMATOCRIT 43.6 % (36.0-47.0); HEMOGLOBIN 15.1 g/dl (12.0-15.5); KETONE, URINE AUTO NEGATIVE (NEGATIVE); LEUKOCYTE ESTERASE, URINE AUTO 3+ (NEGATIVE); LYMPH # 2.4 10^3/uL (1.5-5.0); MEAN CORPUSCULAR HEMOGLOBIN 31.4 pg (27.0-33.0); MEAN CORPUSCULAR HGB CONC 34.6 g/dl (32.0-36.5); MEAN CORPUSCULAR VOLUME 90.6 fl (80.0-96.0); MONO # 0.4 10^3/uL (0.0-0.8); MONO % 4.6 % (2.0-8.0); MUCUS, URINE SMALL (NEGATIVE); NEUTROPHILS # 4.9 10^3/uL (1.5-8.5); NEUTROPHILS % 61.2 % (36.0-66.0); NITRITE, URINE AUTO NEGATIVE (NEGATIVE); PLATELET COUNT, AUTOMATED 241 10^3/uL (150-450); PROTEIN, URINE AUTO 1+ mg/dL (NEGATIVE); RBC, URINE AUTO 6 /HPF (0-3); RED BLOOD COUNT 4.81 10^6/uL (4.00-5.40); SPECIFIC GRAVITY URINE AUTO 1.025 (1.002-1.035); SQUAMOUS EPITHELIAL CELL UR AU 7 /HPF (0-6); WBC, URINE AUTO 5 /HPF (0-3); WHITE BLOOD COUNT 8.1 10^3/uL (4.0-10.0)
[2023-06-23 12:10] LABS: LIPASE 32 U/L (12-53)
[2023-06-23 12:12] LABS: ALBUMIN 3.9 G/DL (3.2-5.2); ALKALINE PHOSPHATASE 226 U/L (46-116); ALT/SGPT 87 U/L (7.0-40); AST/SGOT 132 U/L (<34); BILIRUBIN,TOTAL 0.6 MG/DL (0.3-1.2); BLOOD UREA NITROGEN 16 MG/DL (9-23); CALCIUM LEVEL 9.3 MG/DL (8.5-10.1); CARBON DIOXIDE LEVEL 27 MMOL/L (20-31); CHLORIDE LEVEL 107 MMOL/L (98-107); CREATININE FOR GFR 0.79 MG/DL (0.55-1.30); GLOMERULAR FILTRATION RATE > 60.0 (>60); GLUCOSE, FASTING 101 MG/DL (60-100); POTASSIUM SERUM 3.9 MMOL/L (3.5-5.1); SODIUM LEVEL 142 MMOL/L (136-145); TOTAL PROTEIN 7.4 G/DL (5.7-8.2)
[2023-06-23 12:13] LABS: THYROID STIMULATING HORMONE 1.507 uIU/ML (0.55-4.78)
== END ==
LOC: M WUC 10:10
PROVIDERS: ATTEND Physician Assistant
DX: R10.12 Left upper quadrant pain (principal)

== ENCOUNTER → 2023-07-21 | Outpatient (CLI) | payer BC | LOC: M RAD 08:07 | PROVIDERS: ATTEND Physician Assistant | DX: R16.1 Splenomegaly, not elsewhere classified (principal); Z90.49 Acquired absence of other specified parts of digestive tract ==

== ENCOUNTER 2023-10-07 11:08 | Day surgery (SDC) | payer BC ==
[~2023-10-07] VITALS: Ht 162.6 cm; Wt 89.9 kg
[~2023-10-07 11:08] MED LIST changes: +LIDOCAINE 2% 100MG/5ML SDV (FOR ANES.) As Ordered ONE; +MIDAZOLAM INJ 2MG/2ML VIAL As Ordered ONE; +MIRT1TAB PO; +OMEP40CA4 PO; +ONDA-282 PO; -ONDA4TAB6 PO; +ROCURONIUM BROMIDE 50MG/5ML VIAL As Ordered ONE; +fentaNYL 100 MCG/2 ML INJECTION As Ordered ONE; +propofoL 200 MG/20 ML VIAL As Ordered ONE
[2023-10-07] MEDS ORDERED: LR 1,000 ML IV SCH ×2 (11:15→13:10)
[2023-10-07 12:00] LABS: HEMOGLOBIN 15.2 g/dl (12.0-15.5); MEAN CORPUSCULAR HEMOGLOBIN 30.3 pg (27.0-33.0); MEAN CORPUSCULAR HGB CONC 33.8 g/dl (32.0-36.5); MEAN CORPUSCULAR VOLUME 89.8 fl (80.0-96.0); PLATELET COUNT, AUTOMATED 208 10^3/uL (150-450); RED BLOOD COUNT 5.01 10^6/uL (4.00-5.40); WHITE BLOOD COUNT 7.7 10^3/uL (4.0-10.0)
[2023-10-07] MEDS ORDERED: HYDROmorphone HCL 2MG/ML 1ML VIAL As Ordered ONE (12:10)
[2023-10-07] MEDS ORDERED: METOCLOPRAMIDE INJ 10MG/2ML VIAL As Ordered ONE (12:27)
[2023-10-07] MEDS ORDERED: GLYCOPYRROLATE INJ 0.2 MG/ML 2 ML VIAL As Ordered ONE (12:27)
[2023-10-07] MEDS ORDERED: ONDANSETRON 4MG 2ML VIAL As Ordered ONE (12:27)
[2023-10-07] MEDS ORDERED: KETOROLAC 60MG 2ML VIAL As Ordered ONE (12:34)
[2023-10-07] MEDS ORDERED: SUGAMMADEX SODIUM 500 MG/5 ML VIAL (BRIDION) As Ordered ONE (12:34)
[2023-10-07] MEDS ORDERED: ONDANSETRON 4MG 2ML VIAL IV PRN (13:10)
[2023-10-07] MEDS ORDERED: HYDROMORPHONE HCL 0.5 MG/ 0.5 ML SYRINGE IV PRN (13:10)
[2023-10-07] MEDS ORDERED: fentaNYL 100 MCG/2 ML INJECTION IV PRN (13:10)
[2023-10-07] MEDS: oxyCODONE 5MG TAB PO PRN (13:28)
[2023-10-07 15:15] VITALS: BP 114/58; TEMP 97.5; O2SAT 97
== END 2023-10-07 15:24 | disposition home or self-care (01) ==
LOC: M SDC 11:08
PROVIDERS: ATTEND Obstetrics & Gynecology
DX: Z30.2 Encounter for sterilization (principal); N73.6 Female pelvic peritoneal adhesions (postinfective); K21.9 Gastro-esophageal reflux disease without esophagitis; F32.A Depression, unspecified; F41.9 Anxiety disorder, unspecified; F17.210 Nicotine dependence, cigarettes, uncomplicated; Z79.899 Other long term (current) drug therapy; Z88.8 Allergy status to other drugs, medicaments and biological substances
CPT/HCPCS: 36415; 58661; 81025; 85027; 86850; 86900; 86901; 88302; J0665; J1100; J1170; J1596; J1885; J2250; J2405; J2765; J3010

== ENCOUNTER → 2024-06-13 | Outpatient (CLI) | payer OTHER ==
[~2024-06-13] MED LIST changes: -LIDOCAINE 2% 100MG/5ML SDV (FOR ANES.) As Ordered ONE; -MIDAZOLAM INJ 2MG/2ML VIAL As Ordered ONE; -ROCURONIUM BROMIDE 50MG/5ML VIAL As Ordered ONE; -fentaNYL 100 MCG/2 ML INJECTION As Ordered ONE; -propofoL 200 MG/20 ML VIAL As Ordered ONE
[2024-06-13 12:56] LABS: BASO % 0.4 % (0.0-1.0); EOS # 0.4 10^3/uL (0.0-0.5); HEMATOCRIT 39.7 % (36.0-47.0); HEMOGLOBIN 13.3 g/dl (12.0-15.5); LYMPH % 37.5 % (24.0-44.0); MEAN CORPUSCULAR HEMOGLOBIN 30.6 pg (27.0-33.0); MEAN CORPUSCULAR HGB CONC 33.5 g/dl (32.0-36.5); MEAN CORPUSCULAR VOLUME 91.5 fl (80.0-96.0); MONO # 0.4 10^3/uL (0.0-0.8); MONO % 6.6 % (2.0-8.0); NEUTROPHILS # 2.6 10^3/uL (1.5-8.5); NEUTROPHILS % 48.3 % (36.0-66.0); PLATELET COUNT, AUTOMATED 176 10^3/uL (150-450); RED BLOOD COUNT 4.34 10^6/uL (4.00-5.40); WHITE BLOOD COUNT 5.4 10^3/uL (4.0-10.0)
[2024-06-13 13:04] LABS: ALBUMIN 3.9 G/DL (3.2-5.2); ALKALINE PHOSPHATASE 103 U/L (35-104); ALT/SGPT 51 U/L (7.0-40); AST/SGOT 34 U/L (<34); BILIRUBIN,TOTAL 0.4 MG/DL (0.3-1.2); BLOOD UREA NITROGEN 12 MG/DL (9-23); CALCIUM LEVEL 8.6 MG/DL (8.5-10.1); CARBON DIOXIDE LEVEL 29 MMOL/L (20-31); CHLORIDE LEVEL 106 MMOL/L (98-107); CHOLESTEROL LEVEL 144 MG/DL (<200); CHOLESTEROL RISK RATIO 2.48 (<5); CREATININE FOR GFR 0.71 MG/DL (0.55-1.30); GLOMERULAR FILTRATION RATE > 90.0 (>60); GLUCOSE, FASTING 91 MG/DL (60-100); LDL CHOLESTEROL 74.2 MG/DL (<100); POTASSIUM SERUM 3.9 MMOL/L (3.5-5.1); SODIUM LEVEL 140 MMOL/L (136-145); THYROID STIMULATING HORMONE 1.946 uIU/ML (0.55-4.78); TOTAL PROTEIN 6.7 G/DL (5.7-8.2); TRIGLYCERIDES LEVEL 59 MG/DL (<150)
[2024-06-13 13:05] LABS: FREE T4 1.15 NG/DL (0.89-1.76); TOTAL 25(OH) VITAMIN D 19.8 NG/ML (20.0-100.0); VITAMIN B12 LEVEL 446 PG/ML (211-911)
[2024-06-13 13:54] LABS: HEMOGLOBIN A1c 4.4 % (4.0-6.0)
== END ==
LOC: M WUC 09:52
PROVIDERS: ATTEND Physician Assistant
DX: Z00.00 Encounter for general adult medical examination without abnormal findings (principal)

== ENCOUNTER → 2025-01-04 | Outpatient (CLI) | payer OTHER ==
[2025-01-04 14:31] LABS: BASO # 0.0 10^3/uL (0.0-0.2); BASO % 0.3 % (0.0-1.0); EOS # 0.3 10^3/uL (0.0-0.5); EOS % 3.9 % (0.0-3.0); LYMPH # 2.3 10^3/uL (1.5-5.0); LYMPH % 31.8 % (24.0-44.0); MONO # 0.4 10^3/uL (0.0-0.8); MONO % 6.1 % (2.0-8.0); NEUTROPHILS # 4.2 10^3/uL (1.5-8.5); NEUTROPHILS % 57.6 % (36.0-66.0); PLATELET COUNT, AUTOMATED 196 10^3/uL (150-450)
[2025-01-04 14:54] LABS: ALT/SGPT 45 U/L (7.0-40); AST/SGOT 36 U/L (<34); CALCIUM LEVEL 8.4 MG/DL (8.5-10.1); CARBON DIOXIDE LEVEL 27 MMOL/L (20-31); CHLORIDE LEVEL 107 MMOL/L (98-107); CHOLESTEROL LEVEL 166 MG/DL (<200); CHOLESTEROL RISK RATIO 2.43 (<5); CREATININE FOR GFR 0.72 MG/DL (0.55-1.30); GLOMERULAR FILTRATION RATE > 90.0 (>60); LDL CHOLESTEROL 81.5 MG/DL (<100); NON-HDL-C 97.9 MG/DL; POTASSIUM SERUM 4.1 MMOL/L (3.5-5.1); SODIUM LEVEL 140 MMOL/L (136-145); TRIGLYCERIDES LEVEL 82 MG/DL (<150)
[2025-01-04 14:55] LABS: FREE T4 1.31 NG/DL (0.89-1.76)
[2025-01-04 14:56] LABS: ESTIMATED AVERAGE GLUCOSE 91.0 MG/DL (60-110)
== END ==
LOC: M WUC 08:22
PROVIDERS: ATTEND Student in an Organized Health Care Education/Training Program
DX: Z00.00 Encounter for general adult medical examination without abnormal findings (principal); R74.8 Abnormal levels of other serum enzymes

== ENCOUNTER → 2025-01-28 | Outpatient (CLI) | payer OTHER | LOC: M WUC 13:26 | PROVIDERS: ATTEND Internal Medicine Gastroenterology | DX: K76.0 Fatty (change of) liver, not elsewhere classified (principal) ==

== ENCOUNTER → 2025-02-19 | Outpatient (CLI) | payer OTHER | LOC: M RAD 13:09 | PROVIDERS: ATTEND Student in an Organized Health Care Education/Training Program | DX: I89.0 Lymphedema, not elsewhere classified (principal) ==